=== PATIENT | male | born 1955 | race Caucasian/White ===

== ENCOUNTER → 2019-07-03 | Outpatient (CLI) | payer OTHER ==
[~2019-07-03] MED LIST: ALEVE220 M1 PO; ASPIR 8181 MG PO; ATORVASTATIN CA40 MG PO; FERREX 150 FORT1 CAP PO; HYDROCODONE-AP1 EAC6 PO; LISINOPRIL10 MG PO; MELATONIN 1 MG1 EACH PO; TOPROL XL25 MG PO; TYLENOL325 MG PO
== END ==
LOC: SJCVC 10:07
DX: I49.3 Ventricular premature depolarization (principal); I25.810 Atherosclerosis of coronary artery bypass graft(s) without angina pectoris; E78.00 Pure hypercholesterolemia, unspecified; I10 Essential (primary) hypertension; J44.9 Chronic obstructive pulmonary disease, unspecified; Z95.1 Presence of aortocoronary bypass graft; Z82.49 Family history of ischemic heart disease and other diseases of the circulatory system; Z79.82 Long term (current) use of aspirin; Z79.899 Other long term (current) drug therapy

== ENCOUNTER → 2019-09-04 | Outpatient (CLI) | payer OTHER | LOC: SJCVC 08:14 | DX: E78.00 Pure hypercholesterolemia, unspecified (principal); I25.10 Atherosclerotic heart disease of native coronary artery without angina pectoris; I10 Essential (primary) hypertension; J44.9 Chronic obstructive pulmonary disease, unspecified; Z95.1 Presence of aortocoronary bypass graft; Z79.82 Long term (current) use of aspirin; Z79.899 Other long term (current) drug therapy; Z88.8 Allergy status to other drugs, medicaments and biological substances ==

== ENCOUNTER → 2020-04-01 | Outpatient (CLI) | payer OTHER | LOC: SJCVCIMAG 07:24 | PROVIDERS: ATTEND Internal Medicine Cardiovascular Disease | DX: I25.10 Atherosclerotic heart disease of native coronary artery without angina pectoris (principal); J44.9 Chronic obstructive pulmonary disease, unspecified; I73.9 Peripheral vascular disease, unspecified; Z95.1 Presence of aortocoronary bypass graft; Z98.61 Coronary angioplasty status ==

== ENCOUNTER → 2021-03-13 | Outpatient (CLI) | payer OTHER | LOC: SJCVC 10:51 | PROVIDERS: ATTEND Internal Medicine Cardiovascular Disease | DX: I49.8 Other specified cardiac arrhythmias (principal); I25.10 Atherosclerotic heart disease of native coronary artery without angina pectoris; I10 Essential (primary) hypertension; E78.00 Pure hypercholesterolemia, unspecified; Z95.1 Presence of aortocoronary bypass graft; Z86.16 Personal history of COVID-19; Z79.82 Long term (current) use of aspirin; Z79.899 Other long term (current) drug therapy; Z88.2 Allergy status to sulfonamides ==